=== PATIENT | male | born 1950 | race African-American/Black ===

== ENCOUNTER 2019-02-28 09:13 | Outpatient (CLI) | payer MEDICARE ==
--- NOTE | 2019-03-01 09:05 | Mammography Report ---
BONE DEXA CLINICAL: Postmenopausal. No comparison. TECHNIQUE: 3 site bone DEXA performed on an Hologic scanner. FINDINGS: The average BMD of the lumbar spine L1-L4 is 0.841g/cm squared with a T score of -2.3 and a Z score o f -1.4. The average total BMD of the left hip is 0.713 g/cm squared with a T score of -2.1and a Z score of -1 .5. The left femoral neck BMD is 0.512 g/cm squared with a T score of -3.1 and a Z score of -1.9. IMPRESSION: 1. WHO classification: Osteopenia with increased fracture risk based on spine and total left hip reynold urements. 2. WHO classification Osteoporosis with high fracture risk based on left femoral neck measurements. RECOMMENDATION: Clinical correlation and routine screening. Definitions: BMD equal bone mineral density T score = BMD related to peak bone mass of young adult ([place] expressed an standard deviation) Z score = age-matched BMD expressed in SD World health organization (WHO) diagnostic criteria Normal T score greater than equal to 1 standard deviation Osteopenia T score between -1 and -2.4 standard deviation Osteoporosis T score -2.5 standard deviation or below. Note: BMD is not the only risk factor for fracture; also consider factors such as the patient's age, risk of falling, previous osteoporotic fracture, family history of osteoporotic fractures, current sm oker and low body weight. Z scores are not calculated if greater than 80 years of age. Signer Name: Marcos Reyes MD Signed: 03/01/2019 9:01 AM Workstation Name: [id number]
== END 2019-02-28 09:14 | disposition home or self-care (01) ==
LOC: MAMMO 09:13
PROVIDERS: ATTEND Student in an Organized Health Care Education/Training Program
DX: M85.88 Other specified disorders of bone density and structure, other site (principal); M81.0 Age-related osteoporosis without current pathological fracture
CPT/HCPCS: 77080